=== PATIENT | female | born 1950 | race Asian ===

== ENCOUNTER 2024-03-05 07:50 | Day surgery (SDC) | payer OTHER, SELFPAY ==
[2024-02-21 10:37] VITALS: BMI 25.1
[2024-02-21 10:52] LABS: % Basophils 1.3 % (0-2); % Eosinophils 3.4 % (0-6); % Immature Granulocytes 0.2 % (0-0.5); % Lymphocytes 21.2 % (20.5-51.1); % Monocytes 9.8 % (1.7-9.3); % Neutrophils 64.1 % (42.2-75.2); Absolute Basophils 0.1 10^3/uL (0-0.2); Absolute Eosinophils 0.2 10^3/uL (0-0.7); Absolute Lymphocytes 1.1 10^3/uL (1.2-3.4); Absolute Monocytes 0.5 10^3/uL (0.1-0.6); Absolute Neutrophils 3.4 10^3/uL (1.4-6.5); Hematocrit 37.2 % (37.0-47.0); Hemoglobin 12.9 g/dL (12.0-16.0); Mean Corp Hgb Conc. 34.7 g/dL (33.0-37.0); Mean Corpuscular Hgb 30.4 pg (27.0-31.0); Mean Corpuscular Volume 87.7 fL (81.0-99.0); Mean Platelet Volume 10.3 fL (7.4-10.4); Nucleated Red Blood Cells % 0 %; Platelet Count 527 10^3/uL (130-400); Red Blood Cell Count 4.24 10^6/uL (4.20-5.40); Red Cell Dist. Width 13.4 % (11.5-14.5); White Blood Cell Count 5.2 10^3/uL (4.8-10.8)
[2024-02-21 10:59] LABS: INR 2.94; PT 31.1 Sec (11.4-14.6)
[2024-02-21 11:30] LABS: ALT (SGPT) 34 U/L (0-35); AST (SGOT) 39 U/L (14-36); Albumin 4.6 g/dl (3.5-5.0); Alkaline Phosphatase 85 U/L (38-126); Blood Urea Nitrogen 14 mg/dl (7-17); Calcium 10.5 mg/dl (8.4-10.2); Carbon Dioxide 27 mmol/L (22-30); Chloride 100 mmol/L (98-107); Estimated Creatinine Clearance 43 ml/min; Glucose 97 mg/dl (70-99); Potassium 4.6 mmol/L (3.5-5.1); Sodium 138 mmol/L (135-145); Total Protein 7.5 g/dl (6.3-8.2); eGFR > 60.00
[2024-03-05] VITALS (20 sets, daily range): BP systolic 101–151; BP diastolic 38–81; BMI 25.1
[2024-03-05 08:39] LABS: INR 2.84; PT 29.8 Sec (11.4-14.6)
--- NOTE | 2024-03-05 12:16 | ITS.CL.ABL ---
[facility] - Ablation
Ablation
Procedure Report:
ELECTROPHYSIOLOGY ABLATION STUDY
�
DATE:: March 05, 2024�����������������������������REFERRING: Dr. Jolley
�
INDICATION: Atypical atrial flutter and prior mitral valve surgery with maze and surgical ASD closure. Prior LAY clip. Prior PVI in 2011 with 28 mm cryoballoon who had maintained sinus rhythm but post mitral valve surgery has noted atypical atrial
flutter.
Prior dual-chamber pacemaker in 2018
HISTORY: See H and P.��As above
�
ANTIARRHYTHMIC DRUG: History of sotalol use
�
PRE-PROCEDURE DESTINY: No atrial thrombus
�
PRESENTING RHYTHM: Atrial flutter cycle length 450 ms alternating with 380 ms but both entraining from the lateral and septal CTI
�
'TIME-OUT':��called and confirmed.
�
SEDATION/ANESTHESIA:��provided via the anesthesia department using general anesthesia (LMA).
�
INTRAVENOUS/ARTERIAL ACCESS:
Right femoral venous - 8Fr
Left femoral venous - 8 Fr, 6 Fr
Ultrasound guidance for bilateral femoral vein access was utilized by me to obtain access with demonstration of normal anatomy
CHADS-VASC Score:
�
HAS-Bled Score
�
PROCEDURE:
1.��A decapolar CS catheter was placed within the CS for mapping and pacing.��This was also used as the reference catheter for the 3-D map. The patient was noted to be in an atypical atrial flutter with 2 separate cycle lengths 450 and 380 ms.
These would vacillate with entrainment at different cycle lengths. The SVC was out of the circuit and we elected to map the left atrium first. Transseptal with a 10 [place] steerable sheath access the left atrium which demonstrated essentially
electrically silent left atrium with a left atrial appendage clip in place. The pulmonary veins and entrance and exit block as well as electrical signs in the roof posterior wall and floor of the left atrium. There is only small area of notable
electrogram on the septal and septal roof aspect of the left atrium. Entrainment from this position demonstrated PPI greater than 100 ms greater than tachycardia cycle length. We then went back to the right atrium demonstrating PPI equal to
tachycardia cycling from the septal and lateral isthmus and areas of mid diastolic activation from the CTI. As such the 4 mm tactic cath was brought to the CTI and ablated as below.
�
2. The intracardiac ultrasound catheter was positioned in the RA to identify the FO for targeting of transseptal puncture, assist��in identification of the pulmonary vein ostia, monitoring pre and post ablation pulmonary vein flow velocities,
monitoring for 'bubble' formation during RF application as a sign of thermal injury,��and to monitor for pericardial effusion during mapping and ablation procedure.���Left atrial size, LV ejection fraction, and pulmonary vein flows were monitored
pre and post ablation procedure. The other valves were inspected and found to be free of significant regurgitation or stenosis.
�
3.��Half of the calculated heparin bolus was administered prior to the first transeptal puncture.��Transseptal puncture was performed to diagnose RA and LA pressure so that safety of LA mapping and ablation could be further assessed, and to access
the left atrium and pulmonary veins for mapping and ablation.��This entailed advancing an 10 [place] steerable sheath with dilator into the superior vena cava and withdrawing both (monitoring intracardiac ultrasound, fluoroscopy and tip pressure)
with the tip oriented toward the atrial septum.��The fossa ovalis was engaged (indicated by sudden displacement of the sheath tip as well as tenting of the fossa seen on intracardiac ultrasound).��Left atrial access required a pass with the
Brockenbrough needle extended.��Left atrial catheter position was confirmed by pressure monitoring (RA mean pressure 8 mm Hg and LA mean presure 14 mm Hg), LA saturation (99%),��as well as fluoroscopy.��The sheath was advanced over the dilator and
positioned in the left atrium.����The remainder of the calculated heparin bolus was administered and heparin was
infused to maintain ACT at 300 -350 seconds throughout the case.
�
4.��RA pacing was performed via the proximal decapolar poles and LA pacing was performed via the distal decapolr poles.
�
5. A quadrapolar catheter was first positioned at the His position for His Bundle recording which was tagged via the 3-D Navex sytem, and then passed to the RVA for RV pacing and recording.
�
6. The multipolar catheter was placed in each of the pulmonary veins posterior wall and entirety of the left atrium demonstrating isolation of each of the LIPV, LSPV, RSPV and the RIPV as well as the LA floor, LA posterior wall and LA roof.��
�
7.��Next, a 3-D map was created using Navex.���A 3-D reconstructed CT image was compared to the 3-D Navex map to assist in anatomic interpretation, mapping and ablation.��The CT image and the NavX image were fused.
�
8. Utilizing a 4 mm tactic cath catheter at 30 W, 42 degrees and up to 22nd lesions tachycardia slowed then terminated ablating from the mid tricuspid valve at 6:00 back towards the IVC. Once tachycardia terminated there was bidirectional block
with intra isthmus conduction time of 290 ms. Septal and lateral pacing demonstrated bidirectional block. The patient was noninducible for other tachyarrhythmias.
�
9. After extubation the patient was noted to have bleeding in her nares which was addressed with Afrin and suction. Anesthesiology was at the bedside with suctioning of approximately 200 cc of bleeding which slowed with protamine and the patient
was protecting her airway well under the direct visualization of anesthesiology. I did have a conversation with ENT for consultation who agreed with our management and will assess the patient in our holding area. The patient is awake alert and
protecting her airway and speaking with us postextubation in the EP lab.
�
TOTAL FLOURO TIME: 12.7 minutes 123 mg
�
TOTAL RF DURATION: 5 minutes
�
REVERSAL OF HEPARIN: 50 mg of protamine, slow IV administration
�
COMPLICATIONS:
None
Intracardiac US shows no pericardial effusion post ablation.
�
SUMMARY:��
Complex left atrial mapping and ablation.
The atypical atrial flutter was determined to be CTI dependent flutter at 2 different cycle length 380 ms and 450 ms. CTI flutter ablation as above slowed and terminated tachycardia with persistent bidirectional block. There was pulmonary vein
isolation with entrance and exit block and electrical silence of the LA roof posterior wall floor and lateral mitral isthmus. There was a small area of voltage at the interatrial septum which was utilized for entrainment.
�
RECOMMENDATIONS:
1. Admit to monitored bed.�
2. Resume anticoagulation
3.��Appreciate ENT evaluation
4.��Continue current medications. If she has further recurrence could consider sotalol therapy
�
Copy to: Dr. Jolley
�
--- NOTE | 2024-03-05 12:39 | PTCARENOTE ---
ENT Dr Monteiro at the bedside evaluation nasal bleed. Clot found in left nare, site numbed with solution then clot evacuation attempted.
--- NOTE | 2024-03-05 12:51 | PTCARENOTE ---
aprox 1223- received pt from procedure room accompanied by RN and LUBRICATING ENGINEER. Bedside report given. Pt AAOx3. following commands. Denies ain, SOB, CP complaint is bleeding in nose. Clearing throat.
ENT consulted . H/H drawn for baseline. VSS- on electronic device monitor. Will remain at bedside and monitor pt closely.
[2024-03-05 13:07] LABS: Hematocrit 29.8 % (37.0-47.0); Hemoglobin 10.4 g/dL (12.0-16.0); Mean Corp Hgb Conc. 34.9 g/dL (33.0-37.0); Mean Corpuscular Hgb 30.4 pg (27.0-31.0); Mean Corpuscular Volume 87.1 fL (81.0-99.0); Mean Platelet Volume 10.2 fL (7.4-10.4); Platelet Count 351 10^3/uL (130-400); Red Blood Cell Count 3.42 10^6/uL (4.20-5.40); Red Cell Dist. Width 14.2 % (11.5-14.5); White Blood Cell Count 5.3 10^3/uL (4.8-10.8)
--- NOTE | 2024-03-05 13:25 | PTCARENOTE ---
[address] Monteiro at bedside assessing epistaxis. No further nasal bleeding noted. Pt c/o very mild sore throat, but declines lozenge when offered.
--- NOTE | 2024-03-05 13:44 | CON.MD ---
Consultation - Medical
-
dictated.
Left posterior epistaxis after nasal temperature probe placed, compounded by anticoagulation.
Clots evacuated, topical applied, no active bleeding
Will order nasal saline, blow nose gently, call if recurs
[2024-03-05] MEDS: TYLENOL 650 MG PO (14:45)
[2024-03-05] MEDS: ANESTHETIC LOZENGE 1 LOZENGE PO (14:45)
--- NOTE | 2024-03-05 15:55 | W.PN.UPDATE ---
Update Note
Progress Note Update
Continued right oozing from rfv site. Injected 1% xylocaine to the site and hemostasis achieved.
Appreciate ENT support and consultation.
--- NOTE | 2024-03-05 17:40 | PTCARENOTE ---
Received the patient from the energy systems laboratory director in a stretcher. She is aaox3. She ambulated to the bathroom with minimal assist. BL groin sites are c/d/i. Her vital signs are stable. A-pacing is noted on the monitor. She has no complaint of pain or
discomfort. While she was in the bathroom, she looked down and a drip of blood came out of her right nare. Pressure was applied and no new drips occurred. I oriented her to her room. Her call carrasquillo is within reach.
Her Coumadin is ordered for 6pm. She asked if it could be given around 8pm as this is the usual time she takes it.
[2024-03-05] MEDS: OCEAN, SALINE MIST 2 SPRAYS NASAL ×2 (20:05→22:51)
[2024-03-05] MEDS: LOPRESSOR 50 MG PO (20:06)
--- NOTE | 2024-03-05 21:18 | PTCARENOTE ---
Addendum entered by Claribel Avalos RN 03/05/24 21:33:
Left and right groin sites clean, dry, and intact. No hematoma or bruising.
Original Note:
Received patient at change of shift. Awake, oriented, sitting in bed eating dinner. No complaints of chest pain or lightheadedness. BP 135/61, A-paced 70s, 97% on room air. Patient agreed to notify nurse when ready to get up for the first time. Call
carrasquillo within reach.
[2024-03-05] MEDS: COUMADIN 5 MG PO (21:59)
[2024-03-05] MEDS: COZAAR 50 MG PO (21:59)
[2024-03-06 04:20] VITALS: BP 119/54
[2024-03-06 04:21] VITALS: BP 119/54
[2024-03-06 05:09] VITALS: BMI 26.2
--- NOTE | 2024-03-06 05:27 | PTCARENOTE ---
Patient rested quietly during the night. Left groin site small oozing-- marked; soft, no hematoma. Right groin site clean, dry, and intact; soft, no hematoma. No nose bleeds overnight.
[2024-03-06 05:34] LABS: Hematocrit 26.1 % (37.0-47.0); Mean Corp Hgb Conc. 34.5 g/dL (33.0-37.0); Mean Corpuscular Hgb 31.3 pg (27.0-31.0); Mean Corpuscular Volume 90.6 fL (81.0-99.0); Mean Platelet Volume 10.3 fL (7.4-10.4); Platelet Count 381 10^3/uL (130-400); Red Blood Cell Count 2.88 10^6/uL (4.20-5.40)
[2024-03-06 05:48] LABS: INR 3.77; PT 37.3 Sec (11.4-14.6)
[2024-03-06 06:03] LABS: Blood Urea Nitrogen 18 mg/dl (7-17); Calcium 8.7 mg/dl (8.4-10.2); Carbon Dioxide 21 mmol/L (22-30); Chloride 108 mmol/L (98-107); Estimated Creatinine Clearance 64 ml/min; Glucose 152 mg/dl (70-99); Potassium 4.5 mmol/L (3.5-5.1); Sodium 138 mmol/L (135-145); eGFR > 60.00
[2024-03-06 06:10] VITALS: BMI 26.2
[2024-03-06 07:25] VITALS: BP 111/48
[2024-03-06] MEDS: COZAAR 50 MG PO (07:31)
[2024-03-06] MEDS: LOPRESSOR 50 MG PO (07:31)
[2024-03-06] MEDS: CALAN EXTENDED RELEASE 120 MG PO (07:33)
[2024-03-06] MEDS: CLARITIN 10 MG PO (07:33)
[2024-03-06] MEDS: OCEAN, SALINE MIST 2 SPRAYS NASAL (07:34)
--- NOTE | 2024-03-06 07:40 | PTCARENOTE ---
The patient is aaox3, vitals are stable, 100% A-paced on the monitor. She has no complaints of pain or discomfort. Right groin dressing is c/d/i. Left groin dressing has serosanguineous marked drainage that has slightly extended passed the marked
area. She has had no new nose bleeds. Her INR this morning is 3.77.
[2024-03-06 08:17] LABS: ACT-LR - POC > 397 Seconds (116-155)
[2024-03-06 08:17] LABS: ACT-LR - POC > 397 Seconds (116-155)
--- NOTE | 2024-03-06 09:23 | W.PN.CARDCBS ---
Addendum entered and electronically signed by Ameya Valdez MD 03/06/24 10:04:
patient seen and examined
agree with BOTTLE CASER note
agree with BOTTLE CASER assessment
exam:
bilat groin cdi
cor regular
atrial paced
aao x 3
no further nasal bleeding
remainder of exam as per BOTTLE CASER note
IMPRESSION:
AFlutter/ATach
s/p CTI flutter ablation, 03/05/24
Epistaxis d/t temp probe trauma
AFib w/prior PVI (2011)
Severe MR, s/p bioprosthetic MVR w/MAZE, LAY clip (08/2017)
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
Post PPM pocket hematoma w/evacuation
NICM
Chronic systolic HF rec EF 50-55%
GERD
Severe LAE
HTN
HLD
Hypothyroid
PLAN:
Tele- A/AVpaced w/underlying sinus rhythm
Bilat groin sites without ht/bleeding, non tender
No further epistaxis overnight
Hgb 9.0 this morning- down from 12.9 preop- not unexpected but will monitor
INR 3.7 this AM- she did get 5mg warfarin last evening (prior INR 2.84)
Will HOLD warfarin tonight, take half dose thurs gala, and resume dosing schedule on 03/08
Check outpt INR in AM and again on 03/11 with CBC- results to Dr. Valdez
Will stop aspirin at this time
Followup at [facility] as scheduled, Dr. Jolley thereafter
Home today
Original Note:
Today's Communication / Plan
-
Hold warfarin tonight, half dose tomorrow, full dose schedule 03/08
Outpt INR in AM and again Sunday 03/11 with CBC
stop aspirin
home today
Impression / Plan
-
PCP: Latha Petersen DO
CDY: Wilfredo Jolley MD
74 y/o female, atypical atrial flutter and prior mitral valve surgery with maze and surgical ASD closure. Prior LAY clip. Prior PVI in 2011 with 28 mm cryoballoon who had maintained sinus rhythm but post mitral valve surgery has noted
atypical atrial flutter/Atach. [id number]=6, maintained on warfarin.
S/P CTI flutter ablation. After extubated, she was noted to have bleeding in nares, suctioned approx 200cc blood. Given protamine but still bleeding. ENT was consulted- clots evacuated and topical applied, resulting in no active bleeding. Right
groin site also with continuous ooze, saturating multiple dressings. Dr. Valdez injected 1% xylocaine with hemostasis achieved.
IMPRESSION:
AFlutter/ATach
s/p CTI flutter ablation, 03/05/24
Epistaxis d/t temp probe trauma
AFib w/prior PVI (2011)
Severe MR, s/p bioprosthetic MVR w/MAZE, LAY clip (08/2017)
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
Post PPM pocket hematoma w/evacuation
NICM
Chronic systolic HF rec EF 50-55%
GERD
Severe LAE
HTN
HLD
Hypothyroid
PLAN:
Tele- A/AVpaced w/underlying sinus rhythm
Bilat groin sites without ht/bleeding, non tender
No further epistaxis overnight
Hgb 9.0 this morning- down from 12.9 preop- not unexpected but will monitor
INR 3.7 this AM- she did get 5mg warfarin last evening (prior INR 2.84)
Will HOLD warfarin tonight, take half dose th gala, and resume dosing schedule on 03/08
Check outpt INR in AM and again on 03/11 with CBC- results to Dr. Valdez
Will stop aspirin at this time
Followup at [facility] as scheduled, Dr. Jolley thereafter
Home today
Progress Note - Insurance Loss Control Surveyor
Subjective
Date of Service: March 06, 2024
Denies cp/palps/dyspnea
oob ambulating
no further epistaxis/groin bleeding overnight
Objective
Labs:
03/06/24 04:30
03/06/24 04:31
Labs
Hgb 9.0 g/dL (12.0-16.0) L 03/06/24 04:30
Hct 26.1 % (37.0-47.0) L 03/06/24 04:30
Plt Count 381 10^3/uL (130-400) 03/06/24 04:30
PT 37.3 Sec (11.4-14.6) H 03/06/24 04:31
INR 3.77 03/06/24 04:31
Sodium 138 mmol/L (135-145) 03/06/24 04:31
Potassium 4.5 mmol/L (3.5-5.1) 03/06/24 04:31
BUN 18 mg/dl (7-17) H 03/06/24 04:31
Creatinine 0.6 mg/dL (0.6-1.0) 03/06/24 04:31
Glucose 152 mg/dl (70-99) H 03/06/24 04:31
Vital Signs and I&O:
Vital Signs
Temp Pulse Resp BP Pulse Ox
97.9 F 75 16 111/48 98
03/06/24 07:25 03/06/24 07:25 03/06/24 07:25 03/06/24 07:25 03/06/24 07:25
Vital Signs
Temp Pulse Resp BP Pulse Ox
97.9 F 75 16 111/48 98
03/06/24 07:25 03/06/24 07:25 03/06/24 07:25 03/06/24 07:25 03/06/24 07:25
Intake & Output
03/04/24 03/05/24 03/06/24 03/07/24
06:59 06:59 06:59 06:59
Intake Total 420 / 420
Output Total 500 / 500
Balance -80 / -80
Physical Exam
Physical Exam
AAOx3, MAEE 5/5
RRR S1 S2 no murmurs
CTA bilat, non labored
soft abd, + bs
bilat groin sites without ht/bleeding, non tender
bilat extremities w/palpable distal pulses, no edema
[2024-03-06 09:25] LABS: Glycohemoglobin (HgbA1c) 5.7 % (4.0-5.6)
--- NOTE | 2024-03-06 09:43 | W.DS.TRANS ---
DC Summary - Rate Inserter
-
Discharge Instructions:
Discharge Diagnosis/Procedures Aflutter, post ablation
Diet Low Cholesterol
Driving Restrictions No driving for 24 hours
Blood Work PT/INR on 03/07
CBC, PT/INR on Sunday 03/[address] Valdez
Instructions:
Stand-Alone Forms: DC Instructions- Cath/EP Lab
Changes to Home Medications: Yes
Discharge Medications:
DC Medications w/original date entered in [facility]
multivitamin (Daily Multi-Vitamin tablet) 1 ea PO NOON 05/09/12
loratadine 10 mg tablet 10 mg PO DAILY 12/13/17
losartan 50 mg tablet 50 mg PO BID 02/16/24
verapamil 120 mg tablet,extended release 120 mg PO DAILY 02/16/24
warfarin 5 mg tablet [address] [facility]02/16/24
warfarin 5 mg tablet (Jantoven) 7.5 mg PO TU 02/16/24
calcium 600 mg (as carbonate)-vitamin D3 5 mcg (200 unit) tablet (Calcium 600 + D(3)) 1 tab PO BID 03/05/24
metoprolol tartrate 50 mg tablet 50 mg PO BID 03/05/24
Home Medication Changes
STOP aspirin
Pending Results: No
[2024-03-06] MEDS: FLUAD (65 yr+) 2024-2025 FORMULA 0.5 ML IM (10:22)
--- NOTE | 2024-03-06 11:44 | CM ---
Chart reviewed. Patient is independent of ADLS, lives with her in a [address], 2 [address], 0 DME. Plan is for the patient to return home.
== END 2024-03-06 10:55 | disposition home or self-care (01) ==
LOC: CATH 07:50
PROVIDERS: Nurse Practitioner; Nurse Practitioner Adult Health; ATTENDING PHYSICIAN Internal Medicine Cardiovascular Disease; CONSULT PHYSICIAN Otolaryngology; FAMILY PHYSICIAN Family Medicine; OTHER PHYSICIAN Internal Medicine Cardiovascular Disease
DX: I48.4 Atypical atrial flutter (principal); I48.19 Other persistent atrial fibrillation; I05.2 Rheumatic mitral stenosis with insufficiency; Z95.3 Presence of xenogenic heart valve; Z95.0 Presence of cardiac pacemaker; I42.8 Other cardiomyopathies; I11.0 Hypertensive heart disease with heart failure; I50.22 Chronic systolic (congestive) heart failure; E78.5 Hyperlipidemia, unspecified; E03.9 Hypothyroidism, unspecified; K21.9 Gastro-esophageal reflux disease without esophagitis; Z79.82 Long term (current) use of aspirin; Z79.01 Long term (current) use of anticoagulants
CPT/HCPCS: C1732; C1894; C1730; C1769; C1766; C2630; C1759; C1892; 36415; 75572; 80048; 80053; 83036; 83735; 85025; 85027; 85347; 85610; 86850; 86900; 86901; 90662; 93005; 93655; 93656; C1760; G0008; Q9967

== ENCOUNTER 2025-05-07 09:17 | Day surgery (SDC) | payer OTHER, SELFPAY ==
[2025-05-07 09:35] VITALS: BP 150/66
[2025-05-07 09:59] VITALS: BP 150/66
[2025-05-07 10:18] VITALS: BMI 26.1
[2025-05-07 10:36] LABS: INR 1.26; PT 15.6 Sec (11.4-14.6)
--- NOTE | 2025-05-07 12:21 | ITS.CL.PACE ---
[facility] - Pacemaker Implant
Pacemaker Implant
Procedure Report:
PACEMAKER GENERATOR CHANGE
Date of Procedure: May 07, 2025
Primary Care Physician: Dr. Latha Petersen
Primary Metal Trades Instructor: Dr. Anel Whyte
Procedures:
1. Removal of a dual chamber PPM generator at TJ
2. Implant of a new dual chamber PPM generator
Indication of Procedure:
1. PM generator at TJ
2. Non-reversible symptomatic bradycardia due to: sinus node dysfunction, second degree AV block, third degree AV block.
Indication/History: The patient is a 75-year-old woman who has a history of mitral valve replacement, persistent atrial fibrillation on Coumadin, and status post pacemaker placement who presents for pacemaker battery change due to battery at TJ.
Coumadin was held for the procedure and she is in normal sinus rhythm. All lead data is stable.
Antibiotic: Ancef 2 g IV
Sedation/anesthesia: Per anesthesia staff.
Description of Procedure: 'Time out' was called and confirmed. The patient was prepped and draped in sterile fashion. Lidocaine with epinephrine was used for local anesthesia. An incision was made along the previous incision and the device and
leads were carefully dissected from the pocket. Hemostasis was obtained with electrocautery. The leads were from the device header and tested using an external analyzer. The pocket was liberally irrigated with antibiotic solution. Once
testing (see below) showed adequate and stable function, the leads were connected to the generator header and the leads and generator were placed within the pocket. The pocket was closed in the typical fashion.
EXPLANTED PPM GENERATOR: [employer] MRI 2272 serial number: [id number] implanted: 12/13/2017
IMPLANTED PPM GENERATOR: [employer] MRI 2272 serial #[id number]
Existing RA lead: [employer] 2087 TC/46 serial number: [id number] implanted: 12/13/2017
Existing RV lead: [employer] 2087 TC/52 serial number: [id number] implanted: 12/13/2017
DEVICE TESTING:
Sensing: RA 2.9 mV, RV 7.5 mV
Capture: RA 1.0 V@0.4ms, RV 1.25 V@0.4ms
Ohms: RA 380, RV 410
FINAL PROGRAMMING
[place] Pacing: DDDR 70-115bpm
Complications: None
CONCLUSIONS:
1. Successful explant of a dual chamber permanent pacemaker
2. Successful implant of a dual chamber permanent pacemaker
RECOMMENDATIONS:
1. Routine post-op care.
2. In-Office wound check on Monday and follow-up with Dr. Anel Whyte as scheduled.
3. Office interrogation in [address] Jolley.
[2025-05-07 13:25] VITALS: BP 132/63
[2025-05-07 13:40] VITALS: BP 132/63
[2025-05-07 13:55] VITALS: BP 117/72
== END 2025-05-07 14:25 | disposition home or self-care (01) ==
LOC: CATH 09:17
PROVIDERS: ATTENDING PHYSICIAN Internal Medicine Interventional Cardiology; FAMILY PHYSICIAN Family Medicine; OTHER PHYSICIAN Internal Medicine Cardiovascular Disease
DX: Z45.010 Encounter for checking and testing of cardiac pacemaker pulse generator [battery] (principal); I49.5 Sick sinus syndrome; I44.2 Atrioventricular block, complete; Z79.01 Long term (current) use of anticoagulants; I48.91 Unspecified atrial fibrillation
CPT/HCPCS: 33228; 85610; C1785